=== PATIENT | female | born 1995 | race Caucasian/White ===

== ENCOUNTER 2017-09-04 00:24 | Emergency (ER) | payer SELFPAY ==
[~2017-09-04] VITALS: Ht 167.6 cm; Wt 100.0 kg
[2017-09-04 00:28] VITALS: BP 142/81; PULSE 88; TEMP 97.9
[2017-09-04] MEDS ORDERED: NORCO 325 MG-51 TAB PO (00:42)
== END 2017-09-04 01:03 | disposition home or self-care (01) ==
LOC: COL.ER 00:24
DX: K00.6 Disturbances in tooth eruption (principal)